=== PATIENT | male | born 1990 | race Caucasian/White ===

== ENCOUNTER 2017-03-31 21:32 | Emergency (ER) | payer OTHER ==
[~2017-03-31] VITALS: Ht 190.5 cm; Wt 100.0 kg
[2017-03-31 21:38] VITALS: BP 155/99; PULSE 66; RESP 16; TEMP 98.3; O2SAT 98
[2017-03-31] MEDS ORDERED: IBUPROFEN 600 MG TAB PO ONE (22:30)
[2017-03-31] MEDS ORDERED: ONDANSETRON ODT 4 MG TAB PO ONE (22:30)
--- NOTE | 2017-03-31 22:44 | PD ---
HPI Chief Complaint: Chest Pain Time Seen by Provider: 22:24 Travel History International Travel<30 days: No Contact w/Intl Traveler<30days: No Traveled to known affect area: No History of Present Illness HPI 26yo M with no PMH presents to the ED with c/o left sided chest pain since 8: 30pm today. States pain is squeezing, constant and nonradiating. No alleviating or exacerbating factors. Associated with sob, nausea. Did not take anything for pain. Denies any similar prior chest pain. Denies any family history of sudden cardiac or cocaine or drug use. Denies any fever , cough, history of PE/DVT, vomiting, abdominal pain, focal weakness or numbness. PFSH Past Medical History Medical History: Denies Significant Hx Past Surgical History Surgical History: No Previous Surgery Social History Alcohol Use: Yes (ONCE WEEKLY) Tobacco Use: Yes (3 CIG PER DAY) Allergies-Medications (Allergen,Severity, Reaction): Coded Allergies: No Known Allergies (Unverified , 03/31/17) Reported Meds & Prescriptions Reported Meds & Active Scripts Active Ibuprofen 400 Mg Tab 400 Mg PO Q8H PRN Review of Systems Except as stated in HPI: all other systems reviewed are Neg Physical Exam Narrative GENERAL: 26yo M not in distress. SKIN: Focused skin assessment warm/dry. HEAD: Atraumatic. Normocephalic. EYES: Pupils equal and round. No scleral icterus. No injection or drainage. ENT: No nasal bleeding or discharge. Mucous membranes pink and moist. NECK: Trachea midline. No JVD. CARDIOVASCULAR: Regular rate and rhythm. No murmur appreciated. RESPIRATORY: No accessory muscle use. Clear to auscultation. Breath sounds equal bilaterally. GASTROINTESTINAL: Abdomen soft, non-tender, nondistended. MUSCULOSKELETAL: No obvious deformities. No clubbing. No cyanosis. No edema. NEUROLOGICAL: Awake and alert. No obvious cranial nerve deficits. Motor grossly within normal limits. Normal speech. PSYCHIATRIC: Appropriate mood and affect; insight and judgment normal. Data Data Last Documented VS Vital Signs Date Time Temp Pulse Resp B/P (MAP) Pulse Ox O2 Delivery O2 Flow Rate FiO2 03/31/17 22:07 16 98 Room Air 03/31/17 21:38 98.3 66 155/99 (117) Orders Orders Basic Metabolic Panel (Bmp) (03/31/17 22:30) Complete Blood Count With Diff (03/31/17 22:30) Prothrombin Time / Inr (Pt) (03/31/17 22:30) Act Partial Throm Time (Ptt) (03/31/17 22:30) Troponin I (03/31/17 22:30) Chest, Single Ap (03/31/17 22:30) Ibuprofen (Motrin) (03/31/17 22:30) Ondansetron Odt (Zofran Odt) (03/31/17 22:30) Labs Laboratory Tests Test 03/31/17 22:30 White Blood Count 9.6 TH/MM3 Red Blood Count 5.58 MIL/MM3 Hemoglobin 16.1 GM/DL Hematocrit 46.9 % Mean Corpuscular Volume 84.1 FL Mean Corpuscular Hemoglobin 29.0 PG Mean Corpuscular Hemoglobin Concent 34.4 % Red Cell Distribution Width 13.5 % Platelet Count 270 TH/MM3 Mean Platelet Volume 7.9 FL Neutrophils (%) (Auto) 42.4 % Lymphocytes (%) (Auto) 43.9 % Monocytes (%) (Auto) 8.7 % Eosinophils (%) (Auto) 4.6 % Basophils (%) (Auto) 0.4 % Neutrophils # (Auto) 4.1 TH/MM3 Lymphocytes # (Auto) 4.2 TH/MM3 Monocytes # (Auto) 0.8 TH/MM3 Eosinophils # (Auto) 0.4 TH/MM3 Basophils # (Auto) 0.0 TH/MM3 CBC Comment DIFF FINAL Differential Comment Prothrombin Time 10.4 SEC Prothromb Time International Ratio 0.9 RATIO Activated Partial Thromboplast Time 28.9 SEC Blood Urea Nitrogen 15 MG/DL Creatinine 0.97 MG/DL Random Glucose 87 MG/DL Calcium Level 9.0 MG/DL Sodium Level 137 MEQ/L Potassium Level 3.8 MEQ/L Chloride Level 103 MEQ/L Carbon Dioxide Level 29.2 MEQ/L Anion Gap 5 MEQ/L Estimat Glomerular Filtration Rate 93 ML/MIN Troponin I LESS THAN 0.02 NG/ML [facility] Medical Decision Making Medical Screen Exam Complete: Yes Emergency Medical Condition: Yes Interpretation(s) EKG: NSR 62bpm. Normal axis. No ST segment elevation or depression. Differential Diagnosis GERD vs. musculoskeletal pain vs. ACS vs. pericarditis Narrative Course 26yo M with no cardiac risk factors here with left sided chest pain. Labs reviewed, no leukocytosis. Troponin negative. BMP unremarkable. CXR showed normal examination. Pt given zofran and ibuprofen. Reevaluated at bedside and feels better. Do not think this is cardiac. Return precautions given. Diagnosis Primary Impression: Atypical chest pain Patient Instructions: General Instructions Departure Forms: Tests/Procedures Additional Instructions: Please follow up with your primary care physician in 3-7 days. Return to the ED if symptoms worsen. Med/Other Pt SpecificInfo: Prescription(s) given Scripts Ibuprofen (Ibuprofen) 400 Mg Tab 400 MG PO Q8H Y for PAIN SCALE 1 TO 4, #20 TAB 0 Refills Prov: Chayo Murray DO 04/01/17 Disposition: 01 DISCHARGE HOME Condition: Stable Chayo Murray DO Mar 31, 2017 22:44
--- NOTE | 2017-03-31 22:51 | RADRPT ---
EXAM DATE/TIME: 03/31/2017 22:48 [facility] COMPARISON: No previous studies available for comparison. INDICATIONS : Chest pain and shortness of breath. MEDICAL HISTORY : None. SURGICAL HISTORY : None. ENCOUNTER: Initial ACUITY: 1 day PAIN SCORE: 7/10 LOCATION: Bilateral chest FINDINGS: A single view of the chest demonstrates the lungs to be symmetrically aerated without evidence of mas s, infiltrate or effusion. The cardiomediastinal contours are unremarkable. Osseous structures are intact. CONCLUSION: Normal examination. Monty Santacruz MD on March 31, 2017 at 22:48 Board Certified Radiologist. This report was verified electronically.
[2017-03-31 23:00] LABS: AUTOMATED NEUTROPHIL # 4.1 TH/MM3 (1.8-7.7); BASOPHIL % 0.4 % (0.0-2.0); EOSINOPHIL # 0.4 TH/MM3 (0-0.4); EOSINOPHIL % 4.6 % (0.0-4.0); HEMATOCRIT 46.9 % (39.0-51.0); HEMO FLAGS DIFF FINAL; LYMPH % 43.9 % (9.0-44.0); LYMPHOCYTE # 4.2 TH/MM3 (1.0-4.8); MEAN CELL VOLUME 84.1 FL (80.0-100.0); MEAN CORPUSCULAR HGB CONC 34.4 % (32.0-36.0); MONO % 8.7 % (0.0-8.0); NEUT % 42.4 % (16.0-70.0); PLATELET COUNT 270 TH/MM3 (150-450); RED BLOOD COUNT 5.58 MIL/MM3 (4.50-5.90); RED CELL DISTRIBUTION WIDTH 13.5 % (11.6-17.2); WHITE BLOOD COUNT 9.6 TH/MM3 (4.0-11.0)
[2017-03-31 23:14] LABS: APTT (PATIENT) 28.9 SEC (24.3-30.1); INTERNATIONAL NORMALIZED RATIO 0.9 RATIO; PROTHROMBIN TIME - PATIENT 10.4 SEC (9.8-11.6)
[2017-03-31 23:25] LABS: ANION GAP 5 MEQ/L (5-15); BICARBONATE 29.2 MEQ/L (21.0-32.0); BLOOD UREA NITROGEN 15 MG/DL (7-18); CHLORIDE 103 MEQ/L (98-107); GLOMERULAR FILTRATION RATE 93 ML/MIN (>89); POTASSIUM 3.8 MEQ/L (3.5-5.1); SODIUM (NA) 137 MEQ/L (136-145)
[2017-04-01] MEDS ORDERED: IBUP1TAB5 PO (00:56)
--- NOTE | 2017-04-02 08:52 | EKG ---
Date Performed: 03/31/2017 Time Performed: 22:04:58 PTAGE: 26 years EKG: Sinus rhythm WITH SINUS ARRHYTHMIA NORMAL ECG NO PREVIOUS TRACING DOCTOR: Severiano Davis Interpretating Date/Time 04/02/2017 08:46:10
== END 2017-04-01 01:30 | disposition home or self-care (01) ==
LOC: NEPE 21:32
DX: R07.89 Other chest pain (principal); R06.02 Shortness of breath; R11.0 Nausea; I49.9 Cardiac arrhythmia, unspecified; F17.210 Nicotine dependence, cigarettes, uncomplicated
CPT/HCPCS: 71010; 80048; 84484; 85025; 85610; 85730; 93005; 99284